=== PATIENT | male | born 1980 | race Caucasian/White ===

== ENCOUNTER 2020-05-19 12:26 | Inpatient (IN) | payer OTHER ==
[2020-05-19 13:16] VITALS: BMI 22.3
[2020-05-19] MEDS ORDERED: METHOCARBAMOL 500 MG TABLET PO PRN (13:17)
[2020-05-19] MEDS ORDERED: ONDANSETRON *ODT* 4 MG TABLET SL PRN (13:17)
[2020-05-19] MEDS ORDERED: MAGNESIUM HYDROX 2400MG/30ML ORAL SUSPENSION 30 ML CUP PO PRN (13:17)
[2020-05-19] MEDS ORDERED: MAGNESIUM CITRATE 300 ML BOTTLE PO PRN (13:17)
[2020-05-19] MEDS ORDERED: IBUPROFEN 400 MG TABLET (FP) PO PRN (13:17)
[2020-05-19] MEDS ORDERED: MENTHOL/PHENOL 1 EACH UD MM PRN (13:17)
[2020-05-19] MEDS ORDERED: NICOTINE POLACRILEX 2 MG GUM BUC PRN (13:17)
[2020-05-19] MEDS ORDERED: BISMUTH SUBSALICYLATE 524 MG/30 ML UD PO PRN (13:17)
[2020-05-19] MEDS ORDERED: ACETAMINOPHEN 325 MG TABLET (FP) PO PRN ×2 (13:17)
[2020-05-19] MEDS ORDERED: chlordiazePOXIDE HCL 25 MG CAPSULE PO PRN (13:17)
[2020-05-19] MEDS ORDERED: MAG HYDROX/AL HYDROX/SIMETH 30 ML UNIT-DOSE CUP PO PRN (13:17)
[2020-05-19] MEDS ORDERED: chlordiazePOXIDE HCL 25 MG CAPSULE PO ONE (13:45)
[2020-05-19] MEDS ORDERED: hydrOXYzine PAMOATE 25 MG CAPSULE (FP) PO SCH (14:00)
[2020-05-19] MEDS: NICOTINE 14 MG/24 HOURS TOPICAL PATCH TD SCH (14:09)
[2020-05-19] MEDS ORDERED: hydrOXYzine PAMOATE 25 MG CAPSULE (FP) PO PRN (15:32)
[2020-05-19] MEDS: chlordiazePOXIDE HCL 25 MG CAPSULE PO SCH ×2 (17:32→22:02)
[2020-05-19] MEDS: MELATONIN 5 MG TABLETS PO SCH (22:02)
[2020-05-19] MEDS: THIAMINE HCL 100 MG TABLET (FP) PO SCH (22:02)
[2020-05-20] MEDS: chlordiazePOXIDE HCL 25 MG CAPSULE PO SCH ×4 (06:00→22:15)
[2020-05-20 09:44] LABS: POTASSIUM 4.2 mmol/L (3.5-5.1)
[2020-05-20 09:47] LABS: HEMATOCRIT 40.5 % (35.4-49); HEMOGLOBIN 13.6 GM/dL (11.7-16.9); MCH 32.9 pg (25.7-33.7); MCHC 33.6 g/dl (32.0-35.9); MEAN CELL VOLUME 97.8 fl (80-96); MEAN PLT VOLUME 8.7 fl (7.5-11.1); PLATELET COUNT 314 K/MM3 (134-434); RBC 4.14 M/mm3 (4.00-5.60); RDW 13.8 % (11.9-15.9)
[2020-05-20] MEDS: PRENATAL VITAMINS W/ FOLIC ACID TABLET (FP) PO SCH (10:10)
[2020-05-20] MEDS: NICOTINE 14 MG/24 HOURS TOPICAL PATCH TD SCH (10:10)
[2020-05-20 10:16] LABS: CALCIUM 9.3 mg/dL (8.5-10.1)
[2020-05-20 10:17] LABS: ALBUMIN 3.5 g/dl (3.4-5.0)
[2020-05-20 10:19] LABS: CREATININE 0.9 mg/dL (0.55-1.3)
[2020-05-20 10:21] LABS: TOT PROT 6.9 g/dl (6.4-8.2)
[2020-05-20 10:45] LABS: HIV INTERPRETATION NEGATIVE (NEGATIVE)
[2020-05-20] MEDS: LIDOCAINE 5% TOPICAL PATCH TP SCH (11:39)
[2020-05-20] MEDS ORDERED: FLU VACCINE (FLULAVAL) PF 60 MCG/0.5 ML SYRINGE 2020-2021 IM ONE (12:00)
[2020-05-20] MEDS: MELATONIN 5 MG TABLETS PO SCH (22:12)
[2020-05-20] MEDS: THIAMINE HCL 100 MG TABLET (FP) PO SCH (22:12)
[2020-05-20] MEDS: LIDOCAINE PATCH REMOVAL MC SCH (22:13)
[2020-05-20] MEDS: METHYL SALICYLATE/MENTHOL OINT 30 GM TUBE TP SCH (22:13)
[2020-05-20] MEDS: IBUPROFEN 600 MG TABLET (FP) PO PRN (22:18)
[2020-05-21] MEDS: chlordiazePOXIDE HCL 25 MG CAPSULE PO SCH ×4 (06:00→22:18)
[2020-05-21] MEDS: LIDOCAINE 5% TOPICAL PATCH TP SCH (10:06)
[2020-05-21] MEDS: PRENATAL VITAMINS W/ FOLIC ACID TABLET (FP) PO SCH (10:06)
[2020-05-21] MEDS: NICOTINE 14 MG/24 HOURS TOPICAL PATCH TD SCH (10:06)
[2020-05-21] MEDS: METHYL SALICYLATE/MENTHOL OINT 30 GM TUBE TP SCH ×2 (10:07→22:18)
[2020-05-21] MEDS: IBUPROFEN 600 MG TABLET (FP) PO PRN (17:46)
[2020-05-21] MEDS: THIAMINE HCL 100 MG TABLET (FP) PO SCH (22:18)
[2020-05-21] MEDS: MELATONIN 5 MG TABLETS PO SCH (22:19)
[2020-05-21] MEDS: LIDOCAINE PATCH REMOVAL MC SCH (22:20)
[2020-05-22] MEDS ORDERED: chlordiazePOXIDE HCL 10 MG CAPSULE PO PRN
[2020-05-22] MEDS: chlordiazePOXIDE HCL 10 MG CAPSULE PO SCH ×4 (05:32→22:18)
[2020-05-22] MEDS: METHYL SALICYLATE/MENTHOL OINT 30 GM TUBE TP SCH ×2 (10:03→22:19)
[2020-05-22] MEDS: NICOTINE 14 MG/24 HOURS TOPICAL PATCH TD SCH (10:03)
[2020-05-22] MEDS: LIDOCAINE 5% TOPICAL PATCH TP SCH (10:04)
[2020-05-22] MEDS: PRENATAL VITAMINS W/ FOLIC ACID TABLET (FP) PO SCH (10:04)
[2020-05-22] MEDS: IBUPROFEN 600 MG TABLET (FP) PO PRN (17:39)
[2020-05-22] MEDS: THIAMINE HCL 100 MG TABLET (FP) PO SCH (22:18)
[2020-05-22] MEDS: MELATONIN 5 MG TABLETS PO SCH (22:18)
[2020-05-22] MEDS: LIDOCAINE PATCH REMOVAL MC SCH (22:19)
[2020-05-23] MEDS: chlordiazePOXIDE HCL 10 MG CAPSULE PO SCH ×2 (05:30→17:37)
[2020-05-23] MEDS: METHYL SALICYLATE/MENTHOL OINT 30 GM TUBE TP SCH ×2 (09:33→22:10)
[2020-05-23] MEDS: NICOTINE 14 MG/24 HOURS TOPICAL PATCH TD SCH (09:33)
[2020-05-23] MEDS: PRENATAL VITAMINS W/ FOLIC ACID TABLET (FP) PO SCH (09:33)
[2020-05-23] MEDS: LIDOCAINE 5% TOPICAL PATCH TP SCH (13:17)
[2020-05-23] MEDS: MELATONIN 5 MG TABLETS PO SCH (21:49)
[2020-05-23] MEDS: THIAMINE HCL 100 MG TABLET (FP) PO SCH (21:49)
[2020-05-23] MEDS: LIDOCAINE PATCH REMOVAL MC SCH (22:10)
[2020-05-24] MEDS ORDERED: chlordiazePOXIDE HCL 10 MG CAPSULE PO ONE (05:00)
[2020-05-24] MEDS: IBUPROFEN 600 MG TABLET (FP) PO PRN (05:55)
[2020-05-24] MEDS: LIDOCAINE 5% TOPICAL PATCH TP SCH (10:13)
[2020-05-24] MEDS: PRENATAL VITAMINS W/ FOLIC ACID TABLET (FP) PO SCH (10:13)
[2020-05-24] MEDS: METHYL SALICYLATE/MENTHOL OINT 30 GM TUBE TP SCH ×2 (10:13→22:06)
[2020-05-24] MEDS: NICOTINE 14 MG/24 HOURS TOPICAL PATCH TD SCH (10:15)
[2020-05-24 16:45] VITALS: TEMP 97.5
[2020-05-24 20:37] VITALS: BP 121/79; PULSE 89
[2020-05-24] MEDS: THIAMINE HCL 100 MG TABLET (FP) PO SCH (22:05)
[2020-05-24] MEDS: MELATONIN 5 MG TABLETS PO SCH (22:05)
[2020-05-24] MEDS: LIDOCAINE PATCH REMOVAL MC SCH (22:06)
== END 2020-05-24 22:57 | disposition other institution (70) | DRG 775 ==
LOC: YASAS 12:26 → Y3N 13:38
PROVIDERS: ADMIT Allergy & Immunology; ATTEND Allergy & Immunology
PROC: HZ2ZZZZ Detoxification Services for Substance Abuse Treatment (ICD-10-PCS; principal; 2020-05-19)
DX: F10.230 Alcohol dependence with withdrawal, uncomplicated (principal); F12.20 Cannabis dependence, uncomplicated; F17.210 Nicotine dependence, cigarettes, uncomplicated; M17.11 Unilateral primary osteoarthritis, right knee; M25.512 Pain in left shoulder; R63.4 Abnormal weight loss; Z68.22 Body mass index [BMI] 22.0-22.9, adult
CPT/HCPCS: 36415; 73030-TC-LT-FY; 80053; 85027; 86780; 87389; 93005; 93010; C9803; G0008; Q0162; Q2036; U0003

== ENCOUNTER 2020-05-24 23:11 | Inpatient (IN) | payer OTHER ==
[2020-05-25] MEDS ORDERED: MAGNESIUM HYDROX 2400MG/30ML ORAL SUSPENSION 30 ML CUP PO PRN (02:16)
[2020-05-25] MEDS ORDERED: MAGNESIUM CITRATE 300 ML BOTTLE PO PRN (02:16)
[2020-05-25] MEDS ORDERED: MENTHOL/PHENOL 1 EACH UD MM PRN (02:16)
[2020-05-25] MEDS ORDERED: guaiFENesin 200 MG/10 ML 10 ML UNIT-DOSE CUPS PO PRN (02:16)
[2020-05-25] MEDS ORDERED: NICOTINE POLACRILEX 2 MG GUM BUC PRN (02:16)
[2020-05-25] MEDS ORDERED: MAG HYDROX/AL HYDROX/SIMETH 30 ML UNIT-DOSE CUP PO PRN (02:16)
[2020-05-25] MEDS ORDERED: ACETAMINOPHEN 325 MG TABLET (FP) PO PRN (02:16)
[2020-05-25] MEDS ORDERED: LOPERAMIDE HCL 2 MG CAPSULE PO PRN (02:16)
[2020-05-25] MEDS ORDERED: P-EPHED 60MG/TRIPROLIDI 2.5MG TABLET PO PRN (02:16)
[2020-05-25] MEDS: NICOTINE 14 MG/24 HOURS TOPICAL PATCH TD SCH (10:02)
[2020-05-25] MEDS: PRENATAL VITAMINS W/ FOLIC ACID TABLET (FP) PO SCH (10:02)
[2020-05-25] MEDS: LIDOCAINE 5% TOPICAL PATCH TP SCH ×2 (10:02→14:09)
[2020-05-25] MEDS: IBUPROFEN 400 MG TABLET (FP) PO PRN (12:09)
[2020-05-25] MEDS: MELATONIN 5 MG TABLETS PO SCH (21:20)
[2020-05-25] MEDS: LIDOCAINE PATCH REMOVAL MC SCH ×2 (21:20→21:21)
[2020-05-25] MEDS: THIAMINE HCL 100 MG TABLET (FP) PO SCH (21:20)
[2020-05-26] MEDS: PRENATAL VITAMINS W/ FOLIC ACID TABLET (FP) PO SCH (09:58)
[2020-05-26] MEDS: LIDOCAINE 5% TOPICAL PATCH TP SCH ×2 (09:59)
[2020-05-26] MEDS: NICOTINE 14 MG/24 HOURS TOPICAL PATCH TD SCH (09:59)
[2020-05-26] MEDS: MELATONIN 5 MG TABLETS PO SCH (21:23)
[2020-05-26] MEDS: THIAMINE HCL 100 MG TABLET (FP) PO SCH (21:23)
[2020-05-26] MEDS: LIDOCAINE PATCH REMOVAL MC SCH ×2 (21:24)
[2020-05-27] MEDS: NICOTINE 14 MG/24 HOURS TOPICAL PATCH TD SCH (10:14)
[2020-05-27] MEDS: PRENATAL VITAMINS W/ FOLIC ACID TABLET (FP) PO SCH (10:14)
[2020-05-27] MEDS: LIDOCAINE 5% TOPICAL PATCH TP SCH ×2 (10:14→10:15)
[2020-05-27] MEDS: LIDOCAINE PATCH REMOVAL MC SCH ×2 (21:27)
[2020-05-27] MEDS: MELATONIN 5 MG TABLETS PO SCH (21:27)
[2020-05-27] MEDS: THIAMINE HCL 100 MG TABLET (FP) PO SCH (21:27)
[2020-05-27] MEDS: SUVOREXANT 10 MG TABLET PO PRN (21:27)
[2020-05-28] MEDS: NICOTINE 14 MG/24 HOURS TOPICAL PATCH TD SCH (09:51)
[2020-05-28] MEDS: LIDOCAINE 5% TOPICAL PATCH TP SCH ×2 (09:51)
[2020-05-28] MEDS: PRENATAL VITAMINS W/ FOLIC ACID TABLET (FP) PO SCH (09:51)
[2020-05-28] MEDS: THIAMINE HCL 100 MG TABLET (FP) PO SCH (21:24)
[2020-05-28] MEDS: MELATONIN 5 MG TABLETS PO SCH (21:24)
[2020-05-28] MEDS: SUVOREXANT 10 MG TABLET PO PRN (21:25)
[2020-05-28] MEDS: LIDOCAINE PATCH REMOVAL MC SCH ×2 (21:26)
[2020-05-29] MEDS: LIDOCAINE 5% TOPICAL PATCH TP SCH ×2 (10:01→10:02)
[2020-05-29] MEDS: NICOTINE 14 MG/24 HOURS TOPICAL PATCH TD SCH (10:01)
[2020-05-29] MEDS: PRENATAL VITAMINS W/ FOLIC ACID TABLET (FP) PO SCH (10:02)
[2020-05-29] MEDS: IBUPROFEN 400 MG TABLET (FP) PO PRN (17:48)
[2020-05-29] MEDS: MELATONIN 5 MG TABLETS PO SCH (21:19)
[2020-05-29] MEDS: THIAMINE HCL 100 MG TABLET (FP) PO SCH (21:20)
[2020-05-29] MEDS: SUVOREXANT 10 MG TABLET PO PRN (21:20)
[2020-05-29] MEDS: LIDOCAINE PATCH REMOVAL MC SCH ×2 (21:21)
[2020-05-30] MEDS: IBUPROFEN 400 MG TABLET (FP) PO PRN ×2 (06:24→21:22)
[2020-05-30] MEDS: PRENATAL VITAMINS W/ FOLIC ACID TABLET (FP) PO SCH (09:53)
[2020-05-30] MEDS: NICOTINE 14 MG/24 HOURS TOPICAL PATCH TD SCH (09:54)
[2020-05-30] MEDS: LIDOCAINE 5% TOPICAL PATCH TP SCH ×2 (09:54)
[2020-05-30] MEDS: SUVOREXANT 10 MG TABLET PO PRN (21:22)
[2020-05-30] MEDS: MELATONIN 5 MG TABLETS PO SCH (21:22)
[2020-05-30] MEDS: THIAMINE HCL 100 MG TABLET (FP) PO SCH (21:22)
[2020-05-30] MEDS: LIDOCAINE PATCH REMOVAL MC SCH ×2 (21:24)
[2020-05-31] MEDS: PRENATAL VITAMINS W/ FOLIC ACID TABLET (FP) PO SCH (09:57)
[2020-05-31] MEDS: NICOTINE 14 MG/24 HOURS TOPICAL PATCH TD SCH ×2 (09:58→10:07)
[2020-05-31] MEDS: LIDOCAINE 5% TOPICAL PATCH TP SCH ×2 (09:58)
[2020-05-31] MEDS ORDERED: NAPHAZOLINE/PHENIRAMINE OPHTHALMIC 15 ML BOTTLE OS PRN (10:09)
[2020-05-31] MEDS: SUVOREXANT 10 MG TABLET PO PRN (21:22)
[2020-05-31] MEDS: THIAMINE HCL 100 MG TABLET (FP) PO SCH (21:22)
[2020-05-31] MEDS: MELATONIN 5 MG TABLETS PO SCH (21:22)
[2020-05-31] MEDS: IBUPROFEN 400 MG TABLET (FP) PO PRN (21:23)
[2020-05-31] MEDS: LIDOCAINE PATCH REMOVAL MC SCH ×2 (21:24)
[2020-06-01] MEDS: PRENATAL VITAMINS W/ FOLIC ACID TABLET (FP) PO SCH (09:58)
[2020-06-01] MEDS: LIDOCAINE 5% TOPICAL PATCH TP SCH ×2 (09:58→09:59)
[2020-06-01] MEDS: IBUPROFEN 400 MG TABLET (FP) PO PRN ×2 (09:59→21:14)
[2020-06-01] MEDS: NICOTINE 14 MG/24 HOURS TOPICAL PATCH TD SCH (09:59)
[2020-06-01] MEDS: THIAMINE HCL 100 MG TABLET (FP) PO SCH (21:14)
[2020-06-01] MEDS: LIDOCAINE PATCH REMOVAL MC SCH ×2 (21:15)
[2020-06-01] MEDS: MELATONIN 5 MG TABLETS PO SCH (21:15)
[2020-06-02] MEDS: NICOTINE 14 MG/24 HOURS TOPICAL PATCH TD SCH (09:54)
[2020-06-02] MEDS: PRENATAL VITAMINS W/ FOLIC ACID TABLET (FP) PO SCH (09:54)
[2020-06-02] MEDS: LIDOCAINE 5% TOPICAL PATCH TP SCH ×2 (09:54)
[2020-06-02] MEDS: IBUPROFEN 400 MG TABLET (FP) PO PRN ×2 (09:54→21:32)
[2020-06-02] MEDS: THIAMINE HCL 100 MG TABLET (FP) PO SCH (21:32)
[2020-06-02] MEDS: MELATONIN 5 MG TABLETS PO SCH (21:32)
[2020-06-02] MEDS: LIDOCAINE PATCH REMOVAL MC SCH ×2 (22:06)
[2020-06-03] MEDS: PRENATAL VITAMINS W/ FOLIC ACID TABLET (FP) PO SCH (10:24)
[2020-06-03] MEDS: NICOTINE 14 MG/24 HOURS TOPICAL PATCH TD SCH (10:24)
[2020-06-03] MEDS: LIDOCAINE 5% TOPICAL PATCH TP SCH ×2 (10:25)
[2020-06-03] MEDS: IBUPROFEN 400 MG TABLET (FP) PO PRN ×2 (10:26→18:35)
[2020-06-03] MEDS: THIAMINE HCL 100 MG TABLET (FP) PO SCH (21:15)
[2020-06-03] MEDS: MELATONIN 5 MG TABLETS PO SCH (21:15)
[2020-06-03] MEDS: LIDOCAINE PATCH REMOVAL MC SCH ×2 (21:16)
[2020-06-04] MEDS: IBUPROFEN 400 MG TABLET (FP) PO PRN (06:34)
[2020-06-04] MEDS: PRENATAL VITAMINS W/ FOLIC ACID TABLET (FP) PO SCH (10:14)
[2020-06-04] MEDS: LIDOCAINE 5% TOPICAL PATCH TP SCH ×2 (10:14)
[2020-06-04] MEDS: NICOTINE 14 MG/24 HOURS TOPICAL PATCH TD SCH (10:14)
[2020-06-04] MEDS: MELATONIN 5 MG TABLETS PO SCH (21:08)
[2020-06-04] MEDS: THIAMINE HCL 100 MG TABLET (FP) PO SCH (21:08)
[2020-06-04] MEDS: LIDOCAINE PATCH REMOVAL MC SCH ×2 (21:08→21:09)
[2020-06-05] MEDS: IBUPROFEN 400 MG TABLET (FP) PO PRN ×2 (06:28→13:37)
[2020-06-05] MEDS: NICOTINE 14 MG/24 HOURS TOPICAL PATCH TD SCH (09:50)
[2020-06-05] MEDS: LIDOCAINE 5% TOPICAL PATCH TP SCH ×2 (09:50→09:51)
[2020-06-05] MEDS: PRENATAL VITAMINS W/ FOLIC ACID TABLET (FP) PO SCH (09:51)
[2020-06-05] MEDS: THIAMINE HCL 100 MG TABLET (FP) PO SCH (21:17)
[2020-06-05] MEDS: MELATONIN 5 MG TABLETS PO SCH (21:17)
[2020-06-05] MEDS: LIDOCAINE PATCH REMOVAL MC SCH ×2 (21:18)
[2020-06-06] MEDS: IBUPROFEN 400 MG TABLET (FP) PO PRN (06:24)
[2020-06-06] MEDS: LIDOCAINE 5% TOPICAL PATCH TP SCH ×2 (10:06)
[2020-06-06] MEDS: PRENATAL VITAMINS W/ FOLIC ACID TABLET (FP) PO SCH (10:06)
[2020-06-06] MEDS: NICOTINE 14 MG/24 HOURS TOPICAL PATCH TD SCH (10:06)
[2020-06-06] MEDS: THIAMINE HCL 100 MG TABLET (FP) PO SCH (21:26)
[2020-06-06] MEDS: MELATONIN 5 MG TABLETS PO SCH (21:26)
[2020-06-06] MEDS: diphenhydrAMINE HCL 25 MG CAPSULE (FP) PO PRN (21:27)
[2020-06-06] MEDS: LIDOCAINE PATCH REMOVAL MC SCH ×2 (21:27)
[2020-06-07] MEDS: IBUPROFEN 400 MG TABLET (FP) PO PRN ×2 (06:25→21:19)
[2020-06-07] MEDS: PRENATAL VITAMINS W/ FOLIC ACID TABLET (FP) PO SCH (10:10)
[2020-06-07] MEDS: LIDOCAINE 5% TOPICAL PATCH TP SCH ×2 (10:10)
[2020-06-07] MEDS: NICOTINE 14 MG/24 HOURS TOPICAL PATCH TD SCH (10:11)
[2020-06-07] MEDS: MELATONIN 5 MG TABLETS PO SCH (21:19)
[2020-06-07] MEDS: diphenhydrAMINE HCL 25 MG CAPSULE (FP) PO PRN (21:19)
[2020-06-07] MEDS: THIAMINE HCL 100 MG TABLET (FP) PO SCH (21:19)
[2020-06-07] MEDS: LIDOCAINE PATCH REMOVAL MC SCH ×2 (21:20)
[2020-06-08] MEDS: PRENATAL VITAMINS W/ FOLIC ACID TABLET (FP) PO SCH (10:13)
[2020-06-08] MEDS: NICOTINE 14 MG/24 HOURS TOPICAL PATCH TD SCH (10:13)
[2020-06-08] MEDS: LIDOCAINE 5% TOPICAL PATCH TP SCH ×2 (10:13)
[2020-06-08] MEDS: IBUPROFEN 400 MG TABLET (FP) PO PRN ×2 (10:14→21:26)
[2020-06-08] MEDS: MELATONIN 5 MG TABLETS PO SCH (21:26)
[2020-06-08] MEDS: diphenhydrAMINE HCL 25 MG CAPSULE (FP) PO PRN (21:26)
[2020-06-08] MEDS: THIAMINE HCL 100 MG TABLET (FP) PO SCH (21:26)
[2020-06-08] MEDS: LIDOCAINE PATCH REMOVAL MC SCH ×2 (21:28)
[2020-06-09] MEDS: IBUPROFEN 400 MG TABLET (FP) PO PRN ×2 (07:27→21:17)
[2020-06-09] MEDS: LIDOCAINE 5% TOPICAL PATCH TP SCH ×2 (10:00→10:01)
[2020-06-09] MEDS: PRENATAL VITAMINS W/ FOLIC ACID TABLET (FP) PO SCH (10:00)
[2020-06-09] MEDS: NICOTINE 14 MG/24 HOURS TOPICAL PATCH TD SCH (10:01)
[2020-06-09] MEDS: THIAMINE HCL 100 MG TABLET (FP) PO SCH (21:16)
[2020-06-09] MEDS: MELATONIN 5 MG TABLETS PO SCH (21:16)
[2020-06-09] MEDS: diphenhydrAMINE HCL 25 MG CAPSULE (FP) PO PRN (21:17)
[2020-06-09] MEDS: LIDOCAINE PATCH REMOVAL MC SCH ×2 (21:18)
[2020-06-10] MEDS: IBUPROFEN 400 MG TABLET (FP) PO PRN ×2 (06:54→21:25)
[2020-06-10] MEDS: PRENATAL VITAMINS W/ FOLIC ACID TABLET (FP) PO SCH (10:01)
[2020-06-10] MEDS: NICOTINE 14 MG/24 HOURS TOPICAL PATCH TD SCH (10:02)
[2020-06-10] MEDS: LIDOCAINE 5% TOPICAL PATCH TP SCH ×2 (10:02)
[2020-06-10] MEDS: THIAMINE HCL 100 MG TABLET (FP) PO SCH (21:23)
[2020-06-10] MEDS: LIDOCAINE PATCH REMOVAL MC SCH ×2 (21:23)
[2020-06-10] MEDS: MELATONIN 5 MG TABLETS PO SCH (21:23)
[2020-06-10] MEDS: diphenhydrAMINE HCL 25 MG CAPSULE (FP) PO PRN (21:24)
[2020-06-11] MEDS: IBUPROFEN 400 MG TABLET (FP) PO PRN ×2 (06:43→21:31)
[2020-06-11] MEDS: PRENATAL VITAMINS W/ FOLIC ACID TABLET (FP) PO SCH (10:27)
[2020-06-11] MEDS: LIDOCAINE 5% TOPICAL PATCH TP SCH ×2 (10:27)
[2020-06-11] MEDS: NICOTINE 14 MG/24 HOURS TOPICAL PATCH TD SCH (10:27)
[2020-06-11] MEDS: LIDOCAINE PATCH REMOVAL MC SCH ×2 (21:28)
[2020-06-11] MEDS: THIAMINE HCL 100 MG TABLET (FP) PO SCH (21:29)
[2020-06-11] MEDS: MELATONIN 5 MG TABLETS PO SCH (21:29)
[2020-06-11] MEDS: diphenhydrAMINE HCL 25 MG CAPSULE (FP) PO PRN (21:30)
[2020-06-12] MEDS: IBUPROFEN 400 MG TABLET (FP) PO PRN ×2 (07:32→21:25)
[2020-06-12] MEDS: NICOTINE 14 MG/24 HOURS TOPICAL PATCH TD SCH (10:04)
[2020-06-12] MEDS: LIDOCAINE 5% TOPICAL PATCH TP SCH ×2 (10:04)
[2020-06-12] MEDS: PRENATAL VITAMINS W/ FOLIC ACID TABLET (FP) PO SCH (10:04)
[2020-06-12] MEDS: diphenhydrAMINE HCL 25 MG CAPSULE (FP) PO PRN (21:24)
[2020-06-12] MEDS: THIAMINE HCL 100 MG TABLET (FP) PO SCH (21:24)
[2020-06-12] MEDS: MELATONIN 5 MG TABLETS PO SCH (21:24)
[2020-06-12] MEDS: LIDOCAINE PATCH REMOVAL MC SCH ×2 (21:26)
[2020-06-13] MEDS: IBUPROFEN 400 MG TABLET (FP) PO PRN ×2 (10:17→21:26)
[2020-06-13] MEDS: PRENATAL VITAMINS W/ FOLIC ACID TABLET (FP) PO SCH (10:17)
[2020-06-13] MEDS: LIDOCAINE 5% TOPICAL PATCH TP SCH ×2 (10:18→10:19)
[2020-06-13] MEDS: NICOTINE 14 MG/24 HOURS TOPICAL PATCH TD SCH (10:19)
[2020-06-13] MEDS: diphenhydrAMINE HCL 25 MG CAPSULE (FP) PO PRN (21:26)
[2020-06-13] MEDS: MELATONIN 5 MG TABLETS PO SCH (21:26)
[2020-06-13] MEDS: THIAMINE HCL 100 MG TABLET (FP) PO SCH (21:26)
[2020-06-13] MEDS: LIDOCAINE PATCH REMOVAL MC SCH ×2 (21:27)
[2020-06-14] MEDS: IBUPROFEN 400 MG TABLET (FP) PO PRN ×2 (09:59→21:21)
[2020-06-14] MEDS: LIDOCAINE 5% TOPICAL PATCH TP SCH ×2 (10:00)
[2020-06-14] MEDS: NICOTINE 14 MG/24 HOURS TOPICAL PATCH TD SCH (10:00)
[2020-06-14] MEDS: PRENATAL VITAMINS W/ FOLIC ACID TABLET (FP) PO SCH (10:00)
[2020-06-14] MEDS: MELATONIN 5 MG TABLETS PO SCH (21:19)
[2020-06-14] MEDS: THIAMINE HCL 100 MG TABLET (FP) PO SCH (21:19)
[2020-06-14] MEDS: diphenhydrAMINE HCL 25 MG CAPSULE (FP) PO PRN (21:20)
[2020-06-14] MEDS: LIDOCAINE PATCH REMOVAL MC SCH ×2 (21:21→21:22)
[2020-06-14] MEDS: HYDROCORTISONE 1% TOPICAL CREAM 30 GM TUBE TP SCH (21:22)
[2020-06-15] MEDS: HYDROCORTISONE 1% TOPICAL CREAM 30 GM TUBE TP SCH ×2 (10:08→21:27)
[2020-06-15] MEDS: LIDOCAINE 5% TOPICAL PATCH TP SCH ×2 (10:08)
[2020-06-15] MEDS: PRENATAL VITAMINS W/ FOLIC ACID TABLET (FP) PO SCH (10:08)
[2020-06-15] MEDS: NICOTINE 14 MG/24 HOURS TOPICAL PATCH TD SCH (10:08)
[2020-06-15] MEDS: IBUPROFEN 400 MG TABLET (FP) PO PRN ×2 (10:09→21:29)
[2020-06-15] MEDS: MELATONIN 5 MG TABLETS PO SCH (21:27)
[2020-06-15] MEDS: LIDOCAINE PATCH REMOVAL MC SCH ×2 (21:27)
[2020-06-15] MEDS: THIAMINE HCL 100 MG TABLET (FP) PO SCH (21:27)
[2020-06-15] MEDS: diphenhydrAMINE HCL 25 MG CAPSULE (FP) PO PRN (21:28)
[2020-06-16] MEDS: NICOTINE 14 MG/24 HOURS TOPICAL PATCH TD SCH (10:25)
[2020-06-16] MEDS: PRENATAL VITAMINS W/ FOLIC ACID TABLET (FP) PO SCH (10:25)
[2020-06-16] MEDS: LIDOCAINE 5% TOPICAL PATCH TP SCH ×2 (10:25)
[2020-06-16] MEDS: IBUPROFEN 400 MG TABLET (FP) PO PRN (10:26)
[2020-06-16] MEDS: HYDROCORTISONE 1% TOPICAL CREAM 30 GM TUBE TP SCH ×2 (10:28→21:31)
[2020-06-16] MEDS ORDERED: COLLOIDAL OATMEAL 1 BAR EACH TP PRN (10:47)
[2020-06-16] MEDS: METHOCARBAMOL 500 MG TABLET PO SCH ×2 (19:28→21:30)
[2020-06-16] MEDS: MELATONIN 5 MG TABLETS PO SCH (21:30)
[2020-06-16] MEDS: diphenhydrAMINE HCL 25 MG CAPSULE (FP) PO PRN (21:30)
[2020-06-16] MEDS: THIAMINE HCL 100 MG TABLET (FP) PO SCH (21:31)
[2020-06-16] MEDS: LIDOCAINE PATCH REMOVAL MC SCH ×2 (21:31→22:06)
[2020-06-17] MEDS: IBUPROFEN 400 MG TABLET (FP) PO PRN ×2 (06:53→21:29)
[2020-06-17] MEDS: PRENATAL VITAMINS W/ FOLIC ACID TABLET (FP) PO SCH (10:04)
[2020-06-17] MEDS: NICOTINE 14 MG/24 HOURS TOPICAL PATCH TD SCH (10:04)
[2020-06-17] MEDS: METHOCARBAMOL 500 MG TABLET PO SCH ×4 (10:04→21:27)
[2020-06-17] MEDS: HYDROCORTISONE 1% TOPICAL CREAM 30 GM TUBE TP SCH ×2 (10:05→21:29)
[2020-06-17] MEDS: LIDOCAINE 5% TOPICAL PATCH TP SCH ×2 (10:05)
[2020-06-17] MEDS: MELATONIN 5 MG TABLETS PO SCH (21:26)
[2020-06-17] MEDS: THIAMINE HCL 100 MG TABLET (FP) PO SCH (21:26)
[2020-06-17] MEDS: diphenhydrAMINE HCL 25 MG CAPSULE (FP) PO PRN (21:27)
[2020-06-17] MEDS: LIDOCAINE PATCH REMOVAL MC SCH ×2 (21:30→21:31)
[2020-06-18] MEDS: METHOCARBAMOL 500 MG TABLET PO SCH ×4 (10:12→21:28)
[2020-06-18] MEDS: IBUPROFEN 400 MG TABLET (FP) PO PRN ×2 (10:12→21:28)
[2020-06-18] MEDS: PRENATAL VITAMINS W/ FOLIC ACID TABLET (FP) PO SCH (10:12)
[2020-06-18] MEDS: LIDOCAINE 5% TOPICAL PATCH TP SCH ×2 (10:13)
[2020-06-18] MEDS: NICOTINE 14 MG/24 HOURS TOPICAL PATCH TD SCH (10:14)
[2020-06-18] MEDS: HYDROCORTISONE 1% TOPICAL CREAM 30 GM TUBE TP SCH ×2 (10:15→21:29)
[2020-06-18] MEDS: THIAMINE HCL 100 MG TABLET (FP) PO SCH (21:28)
[2020-06-18] MEDS: diphenhydrAMINE HCL 25 MG CAPSULE (FP) PO PRN (21:28)
[2020-06-18] MEDS: MELATONIN 5 MG TABLETS PO SCH (21:28)
[2020-06-18] MEDS: LIDOCAINE PATCH REMOVAL MC SCH ×2 (21:29)
[2020-06-19] MEDS: IBUPROFEN 400 MG TABLET (FP) PO PRN (06:15)
[2020-06-19] MEDS ORDERED: MASKS NR ONE (06:25)
[2020-06-19] MEDS: PRENATAL VITAMINS W/ FOLIC ACID TABLET (FP) PO SCH (09:48)
[2020-06-19] MEDS: METHOCARBAMOL 500 MG TABLET PO SCH ×4 (09:48→21:33)
[2020-06-19] MEDS: NICOTINE 14 MG/24 HOURS TOPICAL PATCH TD SCH (09:48)
[2020-06-19] MEDS: HYDROCORTISONE 1% TOPICAL CREAM 30 GM TUBE TP SCH ×2 (09:49→21:14)
[2020-06-19] MEDS: LIDOCAINE 5% TOPICAL PATCH TP SCH ×2 (09:49)
[2020-06-19] MEDS: THIAMINE HCL 100 MG TABLET (FP) PO SCH (21:13)
[2020-06-19] MEDS: LIDOCAINE PATCH REMOVAL MC SCH ×2 (21:14→21:15)
[2020-06-19] MEDS: MELATONIN 5 MG TABLETS PO SCH (21:14)
[2020-06-19] MEDS: diphenhydrAMINE HCL 25 MG CAPSULE (FP) PO PRN (21:14)
[2020-06-20] MEDS: IBUPROFEN 400 MG TABLET (FP) PO PRN ×2 (05:59→21:10)
[2020-06-20] MEDS: METHOCARBAMOL 500 MG TABLET PO SCH ×4 (09:45→21:36)
[2020-06-20] MEDS: HYDROCORTISONE 1% TOPICAL CREAM 30 GM TUBE TP SCH ×2 (09:45→21:11)
[2020-06-20] MEDS: PRENATAL VITAMINS W/ FOLIC ACID TABLET (FP) PO SCH (09:45)
[2020-06-20] MEDS: LIDOCAINE 5% TOPICAL PATCH TP SCH ×2 (09:45)
[2020-06-20] MEDS: NICOTINE 14 MG/24 HOURS TOPICAL PATCH TD SCH (09:45)
[2020-06-20] MEDS: diphenhydrAMINE HCL 25 MG CAPSULE (FP) PO PRN (21:09)
[2020-06-20] MEDS: THIAMINE HCL 100 MG TABLET (FP) PO SCH (21:09)
[2020-06-20] MEDS: MELATONIN 5 MG TABLETS PO SCH (21:09)
[2020-06-20] MEDS: LIDOCAINE PATCH REMOVAL MC SCH ×2 (21:10)
[2020-06-21 06:45] VITALS: BP 137/89; PULSE 59; TEMP 98.1
[2020-06-21] MEDS: IBUPROFEN 400 MG TABLET (FP) PO PRN (07:08)
[2020-06-21] MEDS: LIDOCAINE 5% TOPICAL PATCH TP SCH ×2 (09:17→09:18)
[2020-06-21] MEDS: PRENATAL VITAMINS W/ FOLIC ACID TABLET (FP) PO SCH (09:17)
[2020-06-21] MEDS: NICOTINE 14 MG/24 HOURS TOPICAL PATCH TD SCH (09:19)
[2020-06-21] MEDS: METHOCARBAMOL 500 MG TABLET PO SCH (09:19)
[2020-06-21] MEDS: HYDROCORTISONE 1% TOPICAL CREAM 30 GM TUBE TP SCH (09:19)
== END 2020-06-21 09:20 | disposition home or self-care (01) | DRG 772 ==
LOC: YASAS 23:11 → Y3W 23:12
PROVIDERS: ADMIT Allergy & Immunology; ATTEND Allergy & Immunology
PROC: HZ42ZZZ Group Counseling for Substance Abuse Treatment, Cognitive-Behavioral (ICD-10-PCS; principal; 2020-05-24)
DX: F10.20 Alcohol dependence, uncomplicated (principal); F10.24 Alcohol dependence with alcohol-induced mood disorder; F12.20 Cannabis dependence, uncomplicated; F17.210 Nicotine dependence, cigarettes, uncomplicated; F10.282 Alcohol dependence with alcohol-induced sleep disorder; H53.8 Other visual disturbances; L25.8 Unspecified contact dermatitis due to other agents; M17.0 Bilateral primary osteoarthritis of knee; M25.512 Pain in left shoulder; Z62.810 Personal history of physical and sexual abuse in childhood; Z91.410 Personal history of adult physical and sexual abuse
CPT/HCPCS: C9803; U0003